=== PATIENT | female | born 1960 | race African-American/Black ===

== ENCOUNTER 2025-03-30 08:21 | Emergency (ER) | payer OTHER, SELFPAY ==
--- NOTE | ~2025-03-30 | XR_ITS ---
Examination: XR chest 2V Clinical History: CHest Pain Comparison: None Technique: PA and Lateral Findings: Cardiomediastinal silhouette normal size and configuration. Lungs clear. No acute bony abnormality. IMPRESSION: 1. No acute cardiopulmonary findings. Reviewed, dictated and finalized at location R. OLOGICAL TECHNICIAN
--- NOTE | 2025-03-30 08:20 | ECG_ITS ---
Test Date: 2025-03-30 08:26:39 Measurements Intervals [place] Rate: 90 P: 31 NC: 139 QRS: 5 QRSD: 74 T: 29 QT: 357 QTc: 439 Interpretive Statements SINUS RHYTHM VOLTAGE CRITERIA FOR LVH MINIMAL Q WAVES- HIGH LATERAL LEADS BASELINE ARTIFACT- II, III, AVL, AVF BORDERLINE ECG No previous ECG available for comparison Electronically Signed On 03-30-2025 09:25:33 EN[employer]ELOPE CUTTER by Will Torres D.O.
[2025-03-30 08:21] VITALS: BP 192/132; PULSE 101; RESP 18; TEMP 36.7; O2SAT 100; O2SAT 99
[2025-03-30 08:25] VITALS: PULSE 94
[2025-03-30 08:38] LABS: Hematocrit 36.9 % (37.0-47.0); Hemoglobin 12.0 g/dL (12.0-15.0); Immature Granulocyte Percent A 0.3 % (0-0.5); Lymphocytes Absolute Auto 1.57 K/mm3 (0.9-3.2); Mean Corpuscular HGB Conc 32.5 g/dl (32-36); Mean Corpuscular Hemoglobin 29.4 pg (26-34); Mean Corpuscular Volume 90.4 fl (80-100); Nucleated Red Blood Cells Absolute Auto 0.000 K/mm3 (0.0-0.012); Nucleated Red Blood Cells Perc 0.0 % (0.0-0.2); Platelet Count Result 415 k/mm3 (150-375); Red Blood Count 4.08 M/mm3 (4.2-5.4); White Blood Count 6.3 K/mm3 (4.5-10.0)
[2025-03-30 08:49] LABS: INR 0.9; Prothrombin Time 12.7 Seconds (11.1-14.7)
[2025-03-30 08:50] LABS: Partial Thromboplastin Time 30.4 Seconds (22.3-36.8)
[2025-03-30 08:51] LABS: Alanine Aminotransferase 14 U/L (6-35); Albumin Level 4.6 g/dL (3.5-5.1); Alkaline Phosphatase 78 U/L (38-126); Anion Gap 9 mmol/L (4-12); Aspartate Amino Transferase 27 U/L (14-36); Bilirubin,Total 0.5 mg/dL (0.2-1.3); Blood Urea Nitrogen 8 mg/dL (7-17); Calcium 10.1 mg/dL (8.4-10.2); Carbon Dioxide 25 mmol/L (22-30); Chloride 105 mmol/L (98-107); Estimated CRCL calculation 68 ml/min; Estimated Glomerular Filt Rate > 60; Glucose 109 mg/dL (65-110); Lipase 37 U/L (23-300); Potassium 4.0 mmol/L (3.4-5.0); Sodium 139 mmol/L (137-145); Total Protein 7.9 g/dL (6.3-8.2)
[2025-03-30 09:02] LABS: Troponin I < 0.012 ng/mL (0.000-0.034)
--- NOTE | 2025-03-30 10:25 | ED_ITS ---
HPI - Chest Pain General Chief Complaint: Chest Pain Stated Complaint: Chest Pain Time Seen by Provider: 03/30/25 10:16 Source: patient and EMS Mode of arrival: EMS Limitations: no limitations History of Present Illness HPI narrative: 64 years old female came [facility] ED from [facility] complaining of chest pain, steady for the last 4 days. Woke up this morning with increased heart rate, feeling dizzy lasted for few minutes then resolved. Patient did not take her regular morning medication prior to arrival. Patient is telling me that she moved in to the new prison February 23 and does not like it and would like to go somewhere else. Her daughter planning to take her to a rental house. Patient report a lot of stress because of the prison situation. Related Data Allergies Allergy/AdvReac Type Severity Reaction Status Date / Time [id number] Reductase Allergy Severe Anaphylaxis Verified 03/30/25 11:52 Inhibitor Review of Systems 2 Review of Systems: All systems reviewed & are unremarkable except as noted in HPI and below Exam 2 Narrative: General appearance: Well-developed, well-nourished Skin: Normal color Head: Normocephalic, nontraumatic Eyes: Clear conjunctiva ENT: Oropharynx normal, ears normal, nose normal Neck: Supple, nontender Chest and respiratory: Airway patent, no respiratory distress, no accessory muscle use Heart: Regular rate/rhythm Abdomen: Soft, nontender, no organomegaly, quiet bowel sounds Vascular: Normal peripheral pulses, normal capillary refill. Musculoskeletal: Normal range of motion, nontender back Neurologic: Alert and oriented ?3, FINISHED CLOTH CHECKER is normal as tested, no gross motor deficit Course Vital Signs Vital signs: Vital Signs Temperature 36.7 C 03/30/25 08:21 Pulse Rate 101 H 03/30/25 08:21 Respiratory Rate 18 03/30/25 08:21 Blood Pressure 192/132 H 03/30/25 08:21 Pulse Oximetry 100 03/30/25 08:21 Oxygen Delivery Room Air 03/30/25 08:21 Temperature 36.7 C 03/30/25 08:21 Pulse Rate 87 03/30/25 11:58 Respiratory Rate 13 03/30/25 11:58 Blood Pressure 165/119 H 03/30/25 11:58 Pulse Oximetry 99 03/30/25 11:58 Oxygen Delivery Room Air 03/30/25 08:21 MDM MDM Narrative Medical decision making narrative: Patient came with chest pain, palpitation, lightheadedness, dizziness Patient did not take her morning medication prior to arrival Blood workup showing blood pressure 192/132 heart rate 101 otherwise within normal limit, patient did not take her blood pressure medication prior to arrival Physical examination is unremarkable except for slight anxiety and restlessness Differential diagnosis include atypical chest pain, anxiety like symptoms, noncompliance with medication, electrolyte imbalance, dehydration Blood workup today includes CBC, CMP, troponin, proBNP, lipase showed no significant abnormality Chest x-ray showed no acute abnormality EKG on arrival showed normal sinus rhythm at 90 beats per minute, mL [id number] lateral leads, baseline artifact, borderline EKG, no previous EKG available comparison Diagnosis, anxiety like symptoms, noncompliance with medication, atypical chest pain, palpitation The pt was discharged to home.the pt,s condition upon discharge was fair,education was provided to the pt in reference to the final impression,discharge study results,treatment,prognosis and need for follow up . Differential Diagnosis Differential Diagnosis: As above Medical Records I have reviewed the following patient records and this information was taken into consideration when formulating the assessment and plan.: previous ER visits, previous hospitalizations and previous clinic visits Lab Data [facility] Lab Attestation statement: I personally reviewed the patient's lab results. 03/30/25 08:30 03/30/25 08:30 Labs: Lab Results 03/30/25 03/30/25 Range/Units 08:30 11:21 WBC 6.3 (4.5-10.0) K/mm3 RBC 4.08 L (4.2-5.4) M/mm3 Hgb 12.0 (12.0-15.0) g/dL Hct 36.9 L (37.0-47.0) % MCV 90.4 (80-100) fl MCH 29.4 (26-34) pg MCHC 32.5 (32-36) g/dl RDW 15.6 H (11.5-14.5) % Plt Count 415 H (150-375) k/mm3 MPV 9.6 (7.4-10.4) fl Immature Gran % (Auto) 0.3 (0-0.5) % Neut % (Auto) 67.3 (45.5-73.1) % Lymph % (Auto) 25.0 (18.3-44.2) % [place] % (Auto) 6.9 (2.6-8.5) % Eos % (Auto) 0.2 (0-4.4) % Baso % (Auto) 0.3 (0.2-1.2) % Lymph # (Auto) 1.57 (0.9-3.2) K/mm3 [place] # (Auto) 0.4 (0.1-0.6) K/mm3 Eos # (Auto) 0.0 (0-0.3) K/mm3 Baso # (Auto) 0.0 (0.0-0.1) K/mm3 Abs Immat Gran (auto) 0.02 (0.00-0.031) K/mm3 Absolute Neuts (auto) 4.2 (1.3-6.7) K/mm3 Absolute Nucleated RBC 0.000 (0.0-0.012) K/mm3 Nucleated RBC % 0.0 (0.0-0.2) % PT 12.7 (11.1-14.7) Seconds INR 0.9 APTT 30.4 (22.3-36.8) Seconds Sodium 139 (137-145) mmol/L Potassium 4.0 (3.4-5.0) mmol/L Chloride 105 (98-107) mmol/L Carbon Dioxide 25 (22-30) mmol/L Anion Gap 9 (4-12) mmol/L BUN 8 (7-17) mg/dL Creatinine 0.56 L (0.7-1.0) mg/dL Estim Creat Clear Calc 68 ml/min Estimated GFR > 60 (59 - ) Glucose 109 (65-110) mg/dL Calcium 10.1 (8.4-10.2) mg/dL Total Bilirubin 0.5 (0.2-1.3) mg/dL AST 27 (14-36) U/L ALT 14 (6-35) U/L Alkaline Phosphatase 78 (38-126) U/L Troponin I < 0.012 < 0.012 (0.000-0.034) ng/mL Total Protein 7.9 (6.3-8.2) g/dL Albumin 4.6 (3.5-5.1) g/dL Lipase 37 (23-300) U/L Imaging Data Radiologist's impression: ITS Impressions Chest X-Ray 03/30/25 09:18 IMPRESSION: 1. No acute cardiopulmonary findings. ECG Data EKG #1: Attestation: I personally reviewed and interpreted this ECG as follows: ECG completion date: 03/30/25 Interpretation: Normal sinus rhythm at 90 beats per minute, minimal [id number] lateral leads, baseline artifact, borderline EKG, no previous EKG available for comparison Critical Care Time Critical Care Time Critical Care Time: No Discharge Plan Discharge Clinical Impression: Atypical chest pain, Stress, Palpitation Patient Disposition: [facility] Living Condition: Improved Instructions: Chest Pain (ED), Stress (ED) Additional Instructions: Return if symptoms are worsening , call your family physician for appointment, take Tylenol as as needed for aches and pain, continue home medications. Patient Language: Austrian Follow-up/Referrals: PACHECO MEYER MD [Non-Staff]
[2025-03-30 11:49] LABS: Troponin I < 0.012 ng/mL (0.000-0.034)
[2025-03-30] MEDS: Please add drug allergy info to patient profile. 1 EACH XX (11:54)
[2025-03-30] MEDS: ASPIRIN 81 MG CHEWABLE TABLET 324 MG PO (11:56)
[2025-03-30 11:58] VITALS: BP 165/119; PULSE 87; RESP 13; O2SAT 99
--- NOTE | 2025-03-30 12:33 | PC.NURSE ---
1219--call placed to [facility] to give report and arrange transport home. Patient does not meet qualifications to send home by ambulance. Patient is alert and oriented and is able to walk. Spoke with Crystal -a asked about their transport vehicle-was told they don't have one on the weekends. Crystal reports that she will call her DON and return call here with what transpires. ED conveyor line battery charger made aware of current situation
[2025-03-30] MEDS: LORazepam (*CRX) 1 MG TABLET PO (12:40)
[2025-03-30 12:42] VITALS: BP 181/123; PULSE 94; RESP 14; TEMP 36.7; O2SAT 100
[2025-03-30 13:15] VITALS: BP 178/100; PULSE 89; RESP 16; O2SAT 100
--- NOTE | 2025-03-30 13:34 | PC.NURSE ---
Family on way to cloth picker patient -sitting in wheelchair in waiting room slip box changer aware of patient
--- NOTE | 2025-03-30 13:57 | PC.NURSE ---
Multiple attempts made to reach [facility] to notify them that family is picking patient up --no answers to calls
== END 2025-03-30 13:48 ==
PROVIDERS: Emergency Medicine; Emergency Provider Emergency Medicine
DX: R07.89 Other chest pain (principal); R00.2 Palpitations; F43.9 Reaction to severe stress, unspecified; R94.31 Abnormal electrocardiogram [ECG] [EKG]
CPT/HCPCS: 36415; 71046; 80053; 83690; 84484; 85025; 85610; 85730; 93005; 99284; A9270